=== PATIENT | male | born 1960 | race Caucasian/White ===

== ENCOUNTER → 2016-04-27 | Outpatient (CLI) | payer BC ==
--- NOTE | 2016-04-27 16:48 | CR ---
EXAMINATION: Right ankle HISTORY: Pain COMPARISON: 03/31/2016 TECHNIQUE: 3 views FINDINGS/IMPRESSION: There is stable screw and plate fixation of a distal fibular fracture. 2 screws fixate the medial malleolus. There is a stable nondisplaced posterior malleolus fracture.
== END ==
LOC: MW.CHORTHO 07:53
PROVIDERS: ATTEND Orthopaedic Surgery
DX: M25.571 Pain in right ankle and joints of right foot (principal); Z96.7 Presence of other bone and tendon implants; Z98.890 Other specified postprocedural states; Z87.81 Personal history of (healed) traumatic fracture; S82.891A Other fracture of right lower leg, initial encounter for closed fracture
CPT/HCPCS: 73610-26-RT; 73610-RT

== ENCOUNTER → 2016-06-08 | Outpatient (CLI) | payer BC ==
--- NOTE | 2016-06-08 11:49 | CR ---
EXAMINATION: Right ankle HISTORY: Hardware COMPARISON: 04/27/2016 TECHNIQUE: 3 views FINDINGS/IMPRESSION: There is stable screw and plate fixation of a distal fibular fracture with 2 sy ndesmotic screws noted. 2 screws also fixate the medial malleolus, unchanged in position and alignme nt. There is a mildly displaced posterior malleolus fracture identified.
== END ==
LOC: MW.CHORTHO 06:59
PROVIDERS: ATTEND Orthopaedic Surgery
DX: Z96.7 Presence of other bone and tendon implants (principal); Z98.890 Other specified postprocedural states; S82.851A Displaced trimalleolar fracture of right lower leg, initial encounter for closed fracture; S93.431A Sprain of tibiofibular ligament of right ankle, initial encounter; Z87.81 Personal history of (healed) traumatic fracture; S82.891A Other fracture of right lower leg, initial encounter for closed fracture
CPT/HCPCS: 73610-26-RT; 73610-RT

== ENCOUNTER 2016-07-14 08:27 | Day surgery (SDC) | payer BC ==
[~2016-07-14 08:27] MED LIST: Acetaminophen/HYDROcodone 325-10 MG Tab PO PRN; Clindamycin Phosphate in D5W 900 MG in Premix Bag 1 BAG IV SCH; Lactated Ringers 1,000 ML IV SCH; Lidocaine 2% 5 ML SDV ONE; Midazolam 1 MG/ML 2 ML SDV ONE; Ondansetron 4 MG/2 ML SDV ONE; Propofol 200 MG/20 ML SDV ONE; fentaNYL 250 MCG/5 ML SDV ONE
--- NOTE | 2016-07-14 09:05 | PCM.PREANE ---
Preanesthetic Assessment - Procedure Proposed Procedure: removal of hardware right ankle - Anesthesia/Transfusion/Family Hx Anesthesia History: Prior Anesthesia Without Reaction Family History of Anesthesia Reaction: No Transfusion History: No Prior Transfusion(s) Additional History: Prior anesthetic for ankle ORIF in 2016 without problem. - Review of Systems General: No Symptoms Pulmonary: Other (sleep apnea - uses CPAP) Cardiovascular: Other (hypertension and hypercholesterolemic; murmur since kid - no symptoms nor treatment) Gastrointestinal: No symptoms, Other (ETOH use ) Neurological: No Symptoms Other: Reports: Depression, Anxiety - Physical Assessment Height: 5 ft 10 in Weight: 300 lb 0.01 oz ASA Class: 3 Mental Status: Alert & Oriented x3 Airway Class: Mallampati = 2 (narrow view due to tonsillar tissue) Thyro-Mental Finger Breadths: 4 Mouth Opening Finger Breadths: 3 ROM/Head Extension: Full (short neck) Lungs: Clear to auscultation, Normal respiratory effort Cardiovascular: Regular Rate, Regular Rhythm, Murmurs (left sternal border) - Allergies Allergies/Adverse Reactions: Allergies Allergy/AdvReac Type Severity Reaction Status Date / Time Penicillins Allergy "turns Verified 02/18/16 16:05 purple" - Blood Blood Available: No Product(s) Available: None - Anesthesia Plan Free Text/Narrative:: present with interview and exam: General understood, prior anesthetic - same. Pre-Op Medication Ordered: None - Acknowledgements Anesthesia Type Planned: General Anesthesia (LMA vs OETT) Pt an Appropriate Candidate for the Planned Anesthesia: Yes Alternatives and Risks of Anesthesia Discussed w Pt/Guardian: Yes Pt/Guardian Understands and Agrees with Anesthesia Plan: Yes PreAnesthesia Questionnaire HEENT History: Reports: None Cardiovascular History: Reports: High Cholesterol, Hypertension Respiratory History: Reports: None, Sleep Apnea (Uses CPAP) Gastrointestinal History: Reports: None Genitourinary History: Reports: None Musculoskeletal History: Reports: Fracture, Osteoarthritis Other Musculoskeletal History: surgery for rt ankle fx (hardware to be removed ) Neurological History: Reports: None Psychiatric History: Reports: Anxiety Endocrine/Metabolic History: Reports: Diabetes, Type II, Obesity/BMI 30+ Hematologic History: Reports: None Immunologic History: Reports: None Oncologic (Cancer) History: Reports: None Dermatologic History: Reports: None - Infectious Disease History Infectious Disease History: Reports: Chicken Pox - Past Surgical History Head Surgeries/Procedures: Reports: None HEENT Surgical History: Reports: Myringotomy w Tube(s) Cardiovascular Surgical History: Reports: None Respiratory Surgical History: Reports: None GI Surgical History: Reports: None Male Surgical History: Reports: None Endocrine Surgical History: Reports: None Neurological Surgical History: Reports: None Musculoskeletal Surgical History: Reports: Knee Replacement, Shoulder Surgery, Other (See Below) Other Musculoskeletal Surgeries/Procedures:: bilateral knee replacement Oncologic Surgical History: Reports: None Dermatological Surgical History: Reports: None - SUBSTANCE USE Smoking Status *Q: Former Smoker Second Hand Smoke Exposure: No Recreational Drug Use History: No - HOME MEDS Home Medications: Home Meds Furosemide 20 mg PO BEDTIME 03/16/16 [History] LORazepam 1 mg PO BEDTIME 03/16/16 [History] Lisinopril 20 mg PO BEDTIME 03/16/16 [History] metFORMIN HCl [Metformin HCl] 1,000 mg PO BID 03/16/16 [History] - CURRENT (IN HOUSE) MEDS Current Meds: Current Medications Hydrocodone Bitart/Acetaminophen ([place] 325-10 Mg) 1 - 2 tab PO Q4H PRN PRN Reason: Pain Clindamycin Phosphate 900 mg/ (Premix) 50 mls @ 100 mls/hr IV ONCALL DAVID Lactated Ringer's (Ringers, Lactated) 1,000 mls @ 100 mls/hr IV ASDIRECTED [facility] Last Admin: 07/14/16 08:04 Dose: 100 mls/hr Discontinued Medications Fentanyl (Sublimaze) Confirm Administered Dose 250 mcg .ROUTE .STK-MED ONE Stop: 07/14/16 08:26 Lidocaine (Xylocaine-Mpf 2%) Confirm Administered Dose 5 ml .ROUTE .STK-MED ONE Stop: 07/14/16 08:26 Midazolam HCl (Versed 1 Mg/Ml) Confirm Administered Dose 2 mg .ROUTE .STK-MED ONE Stop: 07/14/16 08:26 Ondansetron HCl (Zofran) Confirm Administered Dose 4 mg .ROUTE .STK-MED ONE Stop: 07/14/16 08:26 Propofol (Diprivan 20 Ml) Confirm Administered Dose 200 mg .ROUTE .STK-MED ONE Stop: 07/14/16 08:26
[2016-07-14] MEDS ORDERED: Bupivacaine 0.5% 30 ML SDV ONE (09:23)
[2016-07-14] MEDS ORDERED: Propofol 200 MG/20 ML SDV ONE (09:45)
[2016-07-14] MEDS ORDERED: ePHEDrine 50 MG/ML SDV ONE (09:54)
[2016-07-14] MEDS ORDERED: Sodium Chloride 0.9% 20 ML ONE (09:55)
[2016-07-14] MEDS ORDERED: Acetaminophen/HYDROcodone 325-5 MG Tab PO PRN (10:36)
--- NOTE | 2016-07-14 10:42 | PCM.OPNOTE ---
- General Post-Op/Procedure Note Date of Surgery/Procedure: 07/14/16 Operative Procedure(s): 1. HWR R ankle, deep implant. 2. Manipulation of ankle under general anesthesia Post-Op Diagnosis: retained HW R ankle, syndesmotic injury R ankle Anesthesia Technique: General LMA Primary Surgeon: Elsi Beth Fixed Route Operator: Vinay Greco in mLs: 10 Condition: Good Free Text/Narrative:: tt=0 min #[id number]
[2016-07-14] MEDS: fentaNYL 100 MCG/2 ML SDV IVPUSH PRN ×2 (10:56→11:03)
--- NOTE | 2016-07-14 11:21 | PCM.POSTAN ---
POST ANESTHESIA ASSESSMENT - MENTAL STATUS Mental Status: alert, oriented - RESPIRATORY Respiratory Status: respiratory rate WNL, airway patent, O2 saturation stable - CARDIOVASCULAR CV Status: pulse rate WNL, blood pressure stable - GASTROINTESTINAL GI Status: no symptoms - POST OP HYDRATION Hydration Status: adequate & stable - OBSERVATIONS Free Text/Narrative:: to Phase II
--- NOTE | 2016-07-14 13:04 | PCM48HPAN ---
Post Anesthesia Note - EVALUATION WITHIN 48HRS OF ANESTHETIC Vital Signs in Normal Range: Yes Patient Participated in Evaluation: Yes Respiratory Function Stable: Yes Airway Patent: Yes Cardiovascular Function Stable: Yes Hydration Status Stable: Yes Pain Control Satisfactory: Yes Nausea and Vomiting Control Satisfactory: Yes Mental Status Recovered: Yes - COMMENTS/OBSERVATIONS Free Text/Narrative:: Patient seen earlier before leaving facility. Note now done.
[2016-07-14 13:14] VITALS: BP 101/64
--- NOTE | 2016-07-14 14:23 | OR ---
SURGEON: Elsi Beth MD DATE OF PROCEDURE: 07/14/2016 PREOPERATIVE DIAGNOSES: Retained hardware, right ankle, status post open reduction and internal fixation of syndesmotic injury. POSTOPERATIVE DIAGNOSES: Retained hardware, right ankle, status post open reduction and internal fixation of syndesmotic injury. PROCEDURE: Hardware removal, right ankle, deep implant x2. FIELD SALES REPRESENTATIVE: Vinay Greco PA-C. ANESTHESIA: General. ESTIMATED BLOOD LOSS: 10 mL. TOURNIQUET TIME: 0 minutes. COMPLICATIONS: None. DVT PROPHYLAXIS: Not indicated. IMPLANTS USED: None. BRIEF HISTORY: Frankie is a 55-year-old male, who sustained a right bimalleolar ankle fracture with syndesmotic injury requiring surgical treatment. He has done well following this. I did recommend removal of the screws to prevent inadvertent breakage. The risks and goals of procedure were discussed with the patient and were documented preoperatively. He agreed to proceed. DESCRIPTION OF PROCEDURE: The patient was properly identified and brought to the operating room. He was transferred from the OR cart and placed on the operating table in supine position. General anesthesia was administered. After adequate anesthesia was obtained, the right lower extremity was prepped in standard fashion using ChloraPrep solution. It was then sterilely draped. A time-out was performed to ensure correct site and procedure. Preoperative antibiotics were given. The surgical site had been marked preoperatively. C-arm image intensifier was used to confirm position of the screws. A small incision was made over the site of the previous incision where the hardware was noted. Subcutaneous tissues were dissected down to the level of the screws. The screws were removed without difficulty. They were completely intact. At the completion of the procedure, C-arm imaging was used, which confirmed good reduction of the ankle syndesmosis. This was stressed with an external rotation stress view. No widening was noted at the syndesmosis. The wound was then copiously irrigated with saline solution. The deep tissues were closed with 3-0 Vicryl. The skin was closed with irene. Marcaine 0.5% was injected along the incision site. Xeroform gauze was placed over the wound and a bulky dressing was applied. He was awakened from his anesthetic and transferred back to the operating room cart. He was brought to recovery room in stable condition. All needle and sponge counts were correct. LORY / MODL /[id number]
--- NOTE | 2016-07-14 15:10 | CR ---
EXAMINATION: Right ankle HISTORY: Hardware removal COMPARISON: 06/08/2016 TECHNIQUE: 4 views FINDINGS/IMPRESSION: There has been interval removal of 2 syndesmotic anchor screws. Persistent scre w and plate hardware is noted within the distal fibula and 2 screws are noted fixating the medial ma lleolus.
== END 2016-07-14 12:40 | disposition home or self-care (01) ==
LOC: MW.SDS 08:27
PROVIDERS: ATTEND Orthopaedic Surgery
PROC: 0SPF04Z Removal of Internal Fixation Device from Right Ankle Joint, Open Approach (ICD-10-PCS; principal; 2016-07-14)
DX: S82.841D Displaced bimalleolar fracture of right lower leg, subsequent encounter for closed fracture with routine healing (principal); F41.9 Anxiety disorder, unspecified; M19.90 Unspecified osteoarthritis, unspecified site; I10 Essential (primary) hypertension; E78.2 Mixed hyperlipidemia; G47.33 Obstructive sleep apnea (adult) (pediatric); E11.9 Type 2 diabetes mellitus without complications; E66.9 Obesity, unspecified; Z79.84 Long term (current) use of oral hypoglycemic drugs; Z79.899 Other long term (current) drug therapy; Z88.0 Allergy status to penicillin; Z88.8 Allergy status to other drugs, medicaments and biological substances; Z68.41 Body mass index [BMI] 40.0-44.9, adult; Z87.891 Personal history of nicotine dependence; Z98.890 Other specified postprocedural states; Z99.89 Dependence on other enabling machines and devices; Z96.653 Presence of artificial knee joint, bilateral
CPT/HCPCS: 20680; 36415; 76000; 82962; 84132; 93005; A9270; J2250; J2405; J3010; J7120; 01480; 88300; J2704

== ENCOUNTER 2019-01-08 23:05 | Emergency (ER) | payer BC ==
[2019-01-08] MEDS ORDERED: Sodium Chloride 0.9% 10 ML Syringe FLUSH PRN (23:14)
[2019-01-08] MEDS ORDERED: Sodium Chloride 0.9% 2.5 ML Syringe FLUSH PRN (23:14)
--- NOTE | 2019-01-08 23:22 | EDM.PDOC ---
ED HPI GENERAL MEDICAL PROBLEM - General Chief Complaint: Abdominal Pain Stated Complaint: UPPER ABD PAIN Time Seen by Provider: 01/09/19 01:51 - History of Present Illness INITIAL COMMENTS - FREE TEXT/NARRATIVE: HISTORY AND PHYSICAL: History of present illness: Patient is 58-year-old white male history of diabetes who presents with a concern of substernal discomfort with radiation to his back he states he's had some body aches started this morning thought he might have the flu he denies shortness of breath palpitations or other concern he denies trauma denies diarrhea denies nausea or vomiting Review of systems: As per history of present illness and below otherwise all systems reviewed and negative. Past medical history: As per history of present illness and as reviewed below otherwise noncontributory. Surgical history: As per history of present illness and as reviewed below otherwise noncontributory. Social history: No reported history of drug or alcohol abuse. Family history: As per history of present illness and as reviewed below otherwise noncontributory. Physical exam: HEENT: Atraumatic, normocephalic, pupils reactive, negative for conjunctival pallor or scleral icterus, mucous membranes moist, throat clear, neck supple, nontender, trachea midline. Lungs: Clear to auscultation, breath sounds equal bilaterally, chest nontender. Heart: S1S2, regular, negative for clicks, rubs, or JVD. Abdomen: Soft, protuberant, nontender. Negative for masses or hepatosplenomegaly. Negative for costovertebral tenderness. Pelvis: Stable nontender. Genitourinary: Deferred. Rectal: Deferred. Extremities: Atraumatic, negative for cords or calf pain. Neurovascular unremarkable. Neuro: Awake, alert, oriented. Cranial nerves II through XII unremarkable. Cerebellum unremarkable. Motor and sensory unremarkable throughout. Exam nonfocal. Diagnostics: CBC CMP troponin PT/INR influenza screen CT chest abdomen pelvis with IV contrast Therapeutics: Saline 1 L bolus Impression: #1 substernal/epigastric chest pain Definitive disposition and diagnosis as appropriate pending reevaluation and review of above. - Related Data Allergies Allergy/AdvReac Type Severity Reaction Status Date / Time Penicillins Allergy "turns Verified 01/08/19 23:18 purple" cholesterol medication Allergy Other Uncoded 01/08/19 23:18 Home Meds: Home Meds Furosemide 20 mg PO BEDTIME 03/16/16 [History] LORazepam 1 mg PO BEDTIME 03/16/16 [History] Lisinopril 20 mg PO BEDTIME 03/16/16 [History] metFORMIN HCl [Metformin HCl] 1,000 mg PO BID 03/16/16 [History] Acetaminophen/HYDROcodone [[place] 325-5 MG] 1 - 2 tab PO Q4H PRN #80 tablet 07/14 [Rx] Past Medical History HEENT History: Reports: None Cardiovascular History: Reports: High Cholesterol, Hypertension Respiratory History: Reports: None, Sleep Apnea (Uses CPAP) Gastrointestinal History: Reports: None Genitourinary History: Reports: None Musculoskeletal History: Reports: Fracture, Osteoarthritis Other Musculoskeletal History: surgery for rt ankle fx (hardware to be removed ) Neurological History: Reports: None Psychiatric History: Reports: Anxiety Endocrine/Metabolic History: Reports: Diabetes, Type II, Obesity/BMI 30+ Hematologic History: Reports: None Immunologic History: Reports: None Oncologic (Cancer) History: Reports: None Dermatologic History: Reports: None - Infectious Disease History Infectious Disease History: Reports: Chicken Pox - Past Surgical History Head Surgeries/Procedures: Reports: None HEENT Surgical History: Reports: Myringotomy w Tube(s) Cardiovascular Surgical History: Reports: None Respiratory Surgical History: Reports: None GI Surgical History: Reports: None Male Surgical History: Reports: None Endocrine Surgical History: Reports: None Neurological Surgical History: Reports: None Musculoskeletal Surgical History: Reports: Knee Replacement, Shoulder Surgery, Other (See Below) Other Musculoskeletal Surgeries/Procedures:: bilateral knee replacement Oncologic Surgical History: Reports: None Dermatological Surgical History: Reports: None Social & Family History - Family History Family Medical History: Noncontributory - Caffeine Use Caffeine Use: Reports: Soda Caffeine Use Comment: 3 44oz drinks/day ED ROS GENERAL - Review of Systems Review Of Systems: Comprehensive ROS is negative, except as noted in HPI. ED EXAM, GENERAL - Physical Exam Exam: See Below (dictation) Course - Vital Signs Text/Narrative:: Patient's emergency department course and workup has been unremarkable I discussed with patient admission for observation in light of the location and unclear etiology declines will follow up with his private medical doctor he agrees to return as needed as discussed Last Recorded V/S: Last Vital Signs Temp 36.9 C 01/08/19 23:21 Pulse 92 01/08/19 23:21 Resp 18 01/08/19 23:21 BP 179/92 H 01/08/19 23:21 Pulse Ox 94 L 01/08/19 23:21 - Orders/Labs/Meds Orders: Active Orders 24 hr Category Date Time Status Cardiac Monitoring [RC] . DIRECTED Care 01/08/19 23:14 Active EKG Documentation Completion [RC] STAT Care 01/08/19 23:14 Active Oxygen Therapy [RC] ASDIRECTED Care 01/08/19 23:14 Active Pulse Oximetry [RC] ASDIRECTED Care 01/08/19 23:14 Active CULTURE BLOOD [BC] Stat Lab 01/08/19 23:31 Received CULTURE BLOOD [BC] Stat Lab 01/08/19 23:46 Received Sodium Chloride 0.9% [Saline Flush] Med 01/08/19 23:14 Active 10 ml FLUSH ASDIRECTED PRN Sodium Chloride 0.9% [Saline Flush] Med 01/08/19 23:14 Active 2.5 ml FLUSH ASDIRECTED PRN Blood Culture x2 Reflex Set [OM.PC] Stat Oth 01/08/19 23:17 Ordered Saline Lock Insert [OM.PC] Stat Oth 01/08/19 23:14 Ordered Medication Orders Sodium Chloride (Saline Flush) 10 ml FLUSH ASDIRECTED PRN PRN Reason: Keep Vein Open Sodium Chloride (Saline Flush) 2.5 ml FLUSH ASDIRECTED PRN PRN Reason: Keep Vein Open Labs: Laboratory Tests 01/08/19 01/08/19 01/08/19 Range/Units 23:31 23:31 23:31 WBC 9.92 (4.0-11.0) K/uL RBC 5.37 (4.50-5.90) M/uL Hgb 14.9 (13.0-17.0) g/dL Hct 43.2 (38.0-50.0) % MCV 80.4 (80.0-98.0) fL MCH 27.7 (27.0-32.0) pg MCHC 34.5 (31.0-37.0) g/dL RDW Std Deviation 45.8 (28.0-62.0) fl RDW Coeff of Rony 16 H (11.0-15.0) % Plt Count 221 (150-400) K/uL MPV 10.90 (7.40-12.00) fL Neut % (Auto) 73.9 (48.0-80.0) % Lymph % (Auto) 15.1 L (16.0-40.0) % Burnett % (Auto) 10.0 (0.0-15.0) % Eos % (Auto) 0.7 (0.0-7.0) % Baso % (Auto) 0.3 (0.0-1.5) % Neut # (Auto) 7.3 H (1.4-5.7) K/uL Lymph # (Auto) 1.5 (0.6-2.4) K/uL Burnett # (Auto) 1.0 H (0.0-0.8) K/uL Eos # (Auto) 0.1 (0.0-0.7) K/uL Baso # (Auto) 0.0 (0.0-0.1) K/uL INR 0.96 Lactate (0.20-2.00) mmol/L Sodium 140 (136-148) mmol/L Potassium 4.1 (3.5-5.1) mmol/L Chloride 104 (98-107) mmol/L Carbon Dioxide 24.2 (21.0-32.0) mmol/L BUN 15 (7.0-18.0) mg/dL Creatinine 1.1 (0.8-1.3) mg/dL Est Cr Clr Drug Dosing 75.58 mL/min Estimated GFR (MDRD) > 60.0 ml/min Glucose 131 H (74-106) mg/dL Calcium 9.2 (8.5-10.1) mg/dL Total Bilirubin 0.7 (0.2-1.0) mg/dL AST 10 L (15-37) IU/L ALT 22 (14-63) IU/L Alkaline Phosphatase 127 H (46-116) U/L Troponin I < 0.050 (0.000-0.056) ng/mL Total Protein 7.9 (6.4-8.2) g/dL Albumin 4.1 (3.4-5.0) g/dL Globulin 3.8 (2.6-4.0) g/dL Albumin/Globulin Ratio 1.1 (0.9-1.6) Lipase 60 L (73-393) U/L 01/08/19 Range/Units 23:31 WBC (4.0-11.0) K/uL RBC (4.50-5.90) M/uL Hgb (13.0-17.0) g/dL Hct (38.0-50.0) % MCV (80.0-98.0) fL MCH (27.0-32.0) pg MCHC (31.0-37.0) g/dL RDW Std Deviation (28.0-62.0) fl RDW Coeff of Rony (11.0-15.0) % Plt Count (150-400) K/uL MPV (7.40-12.00) fL Neut % (Auto) (48.0-80.0) % Lymph % (Auto) (16.0-40.0) % Burnett % (Auto) (0.0-15.0) % Eos % (Auto) (0.0-7.0) % Baso % (Auto) (0.0-1.5) % Neut # (Auto) (1.4-5.7) K/uL Lymph # (Auto) (0.6-2.4) K/uL Burnett # (Auto) (0.0-0.8) K/uL Eos # (Auto) (0.0-0.7) K/uL Baso # (Auto) (0.0-0.1) K/uL INR Lactate 1.4 (0.20-2.00) mmol/L Sodium (136-148) mmol/L Potassium (3.5-5.1) mmol/L Chloride (98-107) mmol/L Carbon Dioxide (21.0-32.0) mmol/L BUN (7.0-18.0) mg/dL Creatinine (0.8-1.3) mg/dL Est Cr Clr Drug Dosing mL/min Estimated GFR (MDRD) ml/min Glucose (74-106) mg/dL Calcium (8.5-10.1) mg/dL Total Bilirubin (0.2-1.0) mg/dL AST (15-37) IU/L ALT (14-63) IU/L Alkaline Phosphatase (46-116) U/L Troponin I (0.000-0.056) ng/mL Total Protein (6.4-8.2) g/dL Albumin (3.4-5.0) g/dL Globulin (2.6-4.0) g/dL Albumin/Globulin Ratio (0.9-1.6) Lipase (73-393) U/L Meds: Medications Generic Name Dose Route Start Last Admin Trade Name Freq PRN Reason Stop Dose Admin Sodium Chloride 10 ml 01/08/19 23:14 Saline Flush FLUSH ASDIRECTED PRN Keep Vein Open Sodium Chloride 2.5 ml 01/08/19 23:14 Saline Flush FLUSH ASDIRECTED PRN Keep Vein Open Discontinued Medications Generic Name Dose Route Start Last Admin Trade Name Freq PRN Reason Stop Dose Admin Iopamidol 100 ml 01/09/19 00:51 01/09/19 00:52 Isovue Multipack-370 (76%) IVPUSH 01/09/19 00:52 100 ml ONETIME STA Administration Departure - Departure Time of Disposition: 01:51 Disposition: Home, Self-Care 01 Condition: Good Clinical Impression: Epigastric pain - Discharge Information Forms: ED Department Discharge Additional Instructions: The following information is given to patients seen in the emergency department who are being discharged to home. This information is to outline your options for follow-up care. We provide all patients seen in our emergency department with a follow-up referral. The need for follow-up, as well as the timing and circumstances, are variable depending upon the specifics of your emergency department visit. If you don't have a primary care physician on staff, we will provide you with a referral. We always advise you to contact your personal physician following an emergency department visit to inform them of the circumstance of the visit and for follow-up with them and/or the need for any referrals to a consulting specialist. The emergency department will also refer you to a specialist when appropriate. This referral assures that you have the opportunity for followup care with a specialist. All of these measure are taken in an effort to provide you with optimal care, which includes your followup. Under all circumstances we always encourage you to contact your private physician who remains a resource for coordinating your care. When calling for followup care, please make the office aware that this follow-up is from your recent emergency room visit. If for any reason you are refused follow-up, please contact the [facility] emergency department at and asked to speak to the emergency department charge nurse. Continue current medications follow-up with private medical doctor as discussed and return as needed as discussed[] - My Orders Last 24 Hours: My Active Orders 01/08/19 23:14 Cardiac Monitoring [RC] . DIRECTED EKG Documentation Completion [RC] STAT Oxygen Therapy [RC] ASDIRECTED Pulse Oximetry [RC] ASDIRECTED Sodium Chloride 0.9% [Saline Flush] 10 ml FLUSH ASDIRECTED PRN Sodium Chloride 0.9% [Saline Flush] 2.5 ml FLUSH ASDIRECTED PRN Saline Lock Insert [OM.PC] Stat 01/08/19 23:17 Blood Culture x2 Reflex Set [OM.PC] Stat 01/08/19 23:31 CULTURE BLOOD [BC] Stat 01/08/19 23:46 CULTURE BLOOD [BC] Stat - Assessment/Plan Last 24 Hours: My Active Orders 01/08/19 23:14 Cardiac Monitoring [RC] . DIRECTED EKG Documentation Completion [RC] STAT Oxygen Therapy [RC] ASDIRECTED Pulse Oximetry [RC] ASDIRECTED Sodium Chloride 0.9% [Saline Flush] 10 ml FLUSH ASDIRECTED PRN Sodium Chloride 0.9% [Saline Flush] 2.5 ml FLUSH ASDIRECTED PRN Saline Lock Insert [OM.PC] Stat 01/08/19 23:17 Blood Culture x2 Reflex Set [OM.PC] Stat 01/08/19 23:31 CULTURE BLOOD [BC] Stat 01/08/19 23:46 CULTURE BLOOD [BC] Stat
[2019-01-09 00:12] LABS: BLOOD UREA NITROGEN,BUN 15 mg/dL (7.0-18.0); CARBON DIOXIDE,CO2 24.2 mmol/L (21.0-32.0); CHLORIDE,CL 104 mmol/L (98-107); GLUCOSE RANDOM 131 mg/dL (74-106); LIPASE 60 U/L (73-393); POTASSIUM,K 4.1 mmol/L (3.5-5.1); SODIUM,NA 140 mmol/L (136-148)
[2019-01-09] MEDS ORDERED: Iopamidol 755 MG/ML 500 ML Multipack Bottle IVPUSH STA (00:51)
--- NOTE | 2019-01-09 01:30 | CT ---
INDICATION: Upper abdominal and flank pain TECHNIQUE: CT abdomen and pelvis acquired with 100 cc Isovue 370 IV contrast. COMPARISON: February 18, 2016 FINDINGS: Lower chest: Unremarkable. Liver: Unremarkable. Spleen: Unremarkable. Pancreas: Unremarkable. Gallbladder and bile ducts: Unremarkable. Adrenal glands: Unremarkable. Kidneys: Unremarkable. GI tract: Unremarkable. Appendix is normal. Vascular structures: Unremarkable. Lymph nodes: Unremarkable. Miscellaneous: Small fat containing right inguinal hernia. Small fat containing umbilical hernia. No free air or significant free fluid. Pelvic Organs: Unremarkable. Bones: Status post right hip arthroplasty. Severe degenerative changes in the left hip joint. Grade 1 anterolisthesis of L5 on S1 secondary to bilateral L5 pars defects. IMPRESSION: No acute intra-abdominal process identified. Severe degenerative changes in the left hip joint. Status post right hip arthroplasty. Please note that all CT scans at this facility use dose modulation, iterative reconstruction, and/or weight-based dosing when appropriate to reduce radiation dose to as low as reasonably achievable. Dictated by Elmira Scherer MD @ Jan 09 2019 1:24AM Signed by Dr. Elmira Scherer @ Jan 09 2019 1:29AM
--- NOTE | 2019-01-09 01:43 | CT ---
INDICATION: Upper abdominal pain TECHNIQUE: CT chest was acquired with 100 cc Isovue 370 IV contrast. COMPARISON: CT abdomen pelvis February 17, 2019. FINDINGS: Cardiovascular structures: Heart size is normal. Thoracic aorta and main pulmonary artery are normal in caliber. Mediastinum and nickolas: No mass or adenopathy. Lungs: Clear. Pleura and pericardium: No effusions. Chest wall and axilla: No mass or adenopathy. Upper abdomen: Unremarkable. Bones: Moderate degenerative changes in both shoulder joints. Lucent lesions in T4 and T6 vertebrae likely represent hemangiomas. The T6 lesion is unchanged compared to a prior CT from February 18, 2016. The T4 lesion was not included on this study. IMPRESSION: No acute intrathoracic abnormality. Please note that all CT scans at this facility use dose modulation, iterative reconstruction, and/or weight-based dosing when appropriate to reduce radiation dose to as low as reasonably achievable. Dictated by Elmira Scherer MD @ Jan 09 2019 1:41AM Signed by Dr. Elmira Scherer @ Jan 09 2019 1:41AM
[2019-01-09 01:51] VITALS: BP 179/88; PULSE 76
== END 2019-01-09 02:05 | disposition home or self-care (01) ==
LOC: MW.ED 23:05
DX: R10.13 Epigastric pain (principal); R07.2 Precordial pain; I10 Essential (primary) hypertension; E11.9 Type 2 diabetes mellitus without complications; F41.9 Anxiety disorder, unspecified; M19.90 Unspecified osteoarthritis, unspecified site; E66.9 Obesity, unspecified; Z68.41 Body mass index [BMI] 40.0-44.9, adult; Z88.0 Allergy status to penicillin; Z88.8 Allergy status to other drugs, medicaments and biological substances; Z79.84 Long term (current) use of oral hypoglycemic drugs
CPT/HCPCS: 36415; 71260; 74177; 80053; 83605; 83690; 84484; 85025; 85610; 87040; 87804; 93005; 99284; Q9967

== ENCOUNTER 2019-01-09 07:49 | Emergency (ER) | payer BC ==
--- NOTE | 2019-01-09 08:02 | EDM.PDOC ---
ED HPI GENERAL MEDICAL PROBLEM - General Chief Complaint: Genitourinary Problem Stated Complaint: KIDNEY STONES Time Seen by Provider: 01/09/19 07:53 - History of Present Illness INITIAL COMMENTS - FREE TEXT/NARRATIVE: HISTORY AND PHYSICAL: History of present illness: The patient is a 58-year-old male with a history of diabetes hypertension hyperlipidemia and obesity who was seen here in our emergency department approximately 8 hours ago for substernal chest pain back pain and had a full evaluation including labs CAT scan of the chest abdomen and pelvis and no acute abnormalities were identified to indicate what was causing his discomfort. 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 The patient was discharged home at about 2 this morning and represented here this morning about Hal a half hours later complaining of trouble with urination. On his prior visit he did not produce a urine sample did not have the urge to do so. He tells me that he went home and drank some fluids and went to sleep for about 4 hours and then woke up because he felt the urge to urinate. When he went to the bathroom he could not initiate a stream and that seemed to worsen and he feels like there is urine in his bladder and he cannot get it out. He's never had trouble initiating a stream and has no prostate issues that he is aware of. He has no flank pain currently and has had no hematuria. He says that he believes that his prostate was examined about 10 years ago but no recent exams and he has never had any problems with urination. He complains of lower abdominal pain more in the suprapubic area. He has had no Fevers or other symptoms since his discharge from the ED 6 hours ago Review of systems: As per history of present illness and below otherwise all systems reviewed and negative. Past medical history: As per history of present illness and as reviewed below otherwise noncontributory. Surgical history: As per history of present illness and as reviewed below otherwise noncontributory. Social history: No reported history of drug or alcohol abuse. Family history: As per history of present illness and as reviewed below otherwise noncontributory. Physical exam: General: Well-developed well-nourished overweight man who is nontoxic and vital signs were noted by me. HEENT: Atraumatic, normocephalic, negative for conjunctival pallor or scleral icterus, mucous membranes moist, throat clear, neck supple, nontender, trachea midline. Lungs: Clear to auscultation, breath sounds equal bilaterally, chest nontender. Heart: S1S2, regular, negative for clicks, rubs, or JVD. Abdomen: Soft, nondistended, there is some diffuse mild to moderate tenderness in the suprapubic area that does not localize right or left and no upper abdominal tenderness, bowel sounds are hypoactive, Negative for masses or hepatosplenomegaly. Negative for costovertebral tenderness. Pelvis: Stable nontender. Genitourinary: Deferred. Rectal: Deferred. Extremities: Atraumatic, negative for cords or calf pain. Neurovascular unremarkable. Neuro: Awake, alert, oriented. Cranial nerves II through XII unremarkable. Cerebellum unremarkable. Motor and sensory unremarkable throughout. Exam nonfocal. Diagnostics: UA with reflex, measurement of a spontaneous void is visual and bladder scan Therapeutics: Howard catheter placement with leg bag Patient was unable to free void any urine and a bladder scan was performed which showed over a liter of fluid. A Howard catheter will be placed Howard output was 1900+cc of urine. Patient feels significantly improved and will be sent home with a leg bag Impression: Acute urinary retention Definitive disposition and diagnosis as appropriate pending reevaluation and review of above. right abdomen, groin, testicles, penis, Pain Score (Numeric/FACES): 6 - Related Data Allergies Allergy/AdvReac Type Severity Reaction Status Date / Time Penicillins Allergy "turns Verified 01/09/19 07:55 purple" cholesterol medication Allergy Other Uncoded 01/09/19 07:55 Home Meds: Home Meds LORazepam 1 mg PO BEDTIME 03/16/16 [History] Lisinopril 20 mg PO BEDTIME 03/16/16 [History] metFORMIN HCl [Metformin HCl] 1,000 mg PO BID 03/16/16 [History] Past Medical History HEENT History: Reports: None Cardiovascular History: Reports: High Cholesterol, Hypertension Respiratory History: Reports: None, Sleep Apnea (Uses CPAP) Gastrointestinal History: Reports: None Genitourinary History: Reports: None Musculoskeletal History: Reports: Fracture, Osteoarthritis Other Musculoskeletal History: surgery for rt ankle fx (hardware to be removed ) Neurological History: Reports: None Psychiatric History: Reports: Anxiety Endocrine/Metabolic History: Reports: Diabetes, Type II, Obesity/BMI 30+ Hematologic History: Reports: None Immunologic History: Reports: None Oncologic (Cancer) History: Reports: None Dermatologic History: Reports: None - Infectious Disease History Infectious Disease History: Reports: Chicken Pox - Past Surgical History Head Surgeries/Procedures: Reports: None HEENT Surgical History: Reports: Myringotomy w Tube(s) Cardiovascular Surgical History: Reports: None Respiratory Surgical History: Reports: None GI Surgical History: Reports: None Male Surgical History: Reports: None Endocrine Surgical History: Reports: None Neurological Surgical History: Reports: None Musculoskeletal Surgical History: Reports: Knee Replacement, Shoulder Surgery, Other (See Below) Other Musculoskeletal Surgeries/Procedures:: bilateral knee replacement Oncologic Surgical History: Reports: None Dermatological Surgical History: Reports: None Social & Family History - Family History Family Medical History: Noncontributory - Caffeine Use Caffeine Use: Reports: Soda Caffeine Use Comment: 3 44oz drinks/day ED ROS GENERAL - Review of Systems Review Of Systems: Comprehensive ROS is negative, except as noted in HPI. ED EXAM, GENERAL - Physical Exam Exam: See Below (See dictation) Course - Vital Signs Last Recorded V/S: Last Vital Signs Temp 36.2 C 01/09/19 07:52 Pulse 87 01/09/19 07:52 Resp 20 01/09/19 07:52 BP 153/82 H 01/09/19 07:52 Pulse Ox 96 01/09/19 07:52 - Orders/Labs/Meds Orders: Active Orders 24 hr Category Date Time Status Bladder Scan [RC] ASDIRECTED Care 01/09/19 07:58 Active Insert Howard Catheter [Insert Urinary Catheter] [OM.PC] Care 01/09/19 08:15 Ordered Q24H Urinary Catheter Assessment [RC] ASDIRECTED Care 01/09/19 08:15 Active Labs: Laboratory Tests 01/09/19 Range/Units 08:20 Urine Color YELLOW Urine Appearance CLEAR Urine pH 6.5 (5.0-8.0) Ur Specific Echo <= 1.005 (1.001-1.035) Urine Protein NEGATIVE (NEGATIVE) mg/dL Urine Glucose (UA) NEGATIVE (NEGATIVE) mg/dL Urine Ketones NEGATIVE (NEGATIVE) mg/dL Urine Occult Blood NEGATIVE (NEGATIVE) Urine Nitrite NEGATIVE (NEGATIVE) Urine Bilirubin NEGATIVE (NEGATIVE) Urine Urobilinogen 0.2 (<2.0) EU/dL Ur Leukocyte Esterase NEGATIVE (NEGATIVE) Departure - Departure Time of Disposition: 09:11 Disposition: Home, Self-Care 01 Condition: Good Clinical Impression: Acute urinary retention - Discharge Information Forms: ED Department Discharge Additional Instructions: The following information is given to patients seen in the emergency department who are being discharged to home. This information is to outline your options for follow-up care. We provide all patients seen in our emergency department with a follow-up referral. The need for follow-up, as well as the timing and circumstances, are variable depending upon the specifics of your emergency department visit. If you don't have a primary care physician on staff, we will provide you with a referral. We always advise you to contact your personal physician following an emergency department visit to inform them of the circumstance of the visit and for follow-up with them and/or the need for any referrals to a consulting specialist. The emergency department will also refer you to a specialist when appropriate. This referral assures that you have the opportunity for followup care with a specialist. All of these measure are taken in an effort to provide you with optimal care, which includes your followup. Under all circumstances we always encourage you to contact your private physician who remains a resource for coordinating your care. When calling for followup care, please make the office aware that this follow-up is from your recent emergency room visit. If for any reason you are refused follow-up, please contact the [facility] emergency department at and ask to speak to the emergency department charge nurse. [facility] [address] [place] [id number] Drain your leg bag as shown to you by ER nursing. The catheter needs to stay in place for a minimum of 2 days and you need to be followed up with our urologist Dr. Serna for further care and evaluation of this problem. Return to ER as needed and as we discussed. - My Orders Last 24 Hours: My Active Orders 01/09/19 07:58 Bladder Scan [RC] ASDIRECTED 01/09/19 08:15 Insert Howard Catheter [Insert Urinary Catheter] [OM.PC] Q24H Urinary Catheter Assessment [RC] ASDIRECTED - Assessment/Plan Last 24 Hours: My Active Orders 01/09/19 07:58 Bladder Scan [RC] ASDIRECTED 01/09/19 08:15 Insert Howard Catheter [Insert Urinary Catheter] [OM.PC] Q24H Urinary Catheter Assessment [RC] ASDIRECTED
[2019-01-09 10:14] VITALS: BP 153/87; PULSE 78
== END 2019-01-09 09:50 | disposition home or self-care (01) ==
LOC: MW.ED 07:49
DX: R33.9 Retention of urine, unspecified (principal); I10 Essential (primary) hypertension; E11.9 Type 2 diabetes mellitus without complications; M19.90 Unspecified osteoarthritis, unspecified site; F41.9 Anxiety disorder, unspecified; E66.9 Obesity, unspecified; Z68.41 Body mass index [BMI] 40.0-44.9, adult; Z88.0 Allergy status to penicillin; Z88.8 Allergy status to other drugs, medicaments and biological substances; Z79.84 Long term (current) use of oral hypoglycemic drugs
CPT/HCPCS: 51702; 51798; 81003; 99284; 99284-25

== ENCOUNTER 2019-01-10 01:33 | Emergency (ER) | payer BC ==
--- NOTE | 2019-01-10 01:48 | EDM.PDOC ---
ED HPI GENERAL MEDICAL PROBLEM - General Chief Complaint: Lower Extremity Injury/Pain Stated Complaint: BLADDER ISSUES Time Seen by Provider: 01/10/19 01:45 - History of Present Illness INITIAL COMMENTS - FREE TEXT/NARRATIVE: HISTORY AND PHYSICAL: History of present illness: Patient 58-year-old male history of type 2 diabetes who was seen twice prior in the emergency department for 2 separate events he had extensive workup and was discharged on his second visit with urinary retention and had a Howard catheter placed with a leg bag he returns now with discomfort and tingling of his inferior extremities bilateral knees have this in the past related to his diabetes. He is anxious related to the increased symptomatology in the living alone aspect awaiting his 's arrival. Review of systems: As per history of present illness and below otherwise all systems reviewed and negative. Past medical history: As per history of present illness and as reviewed below otherwise noncontributory. Surgical history: As per history of present illness and as reviewed below otherwise noncontributory. Social history: No reported history of drug or alcohol abuse. Family history: As per history of present illness and as reviewed below otherwise noncontributory. Physical exam: HEENT: Atraumatic, normocephalic, pupils reactive, negative for conjunctival pallor or scleral icterus, mucous membranes moist, throat clear, neck supple, nontender, trachea midline. Lungs: Clear to auscultation, breath sounds equal bilaterally, chest nontender. Heart: S1S2, regular, negative for clicks, rubs, or JVD. Abdomen: Soft, nondistended, nontender. Negative for masses or hepatosplenomegaly. Negative for costovertebral tenderness. Pelvis: Stable nontender. Genitourinary: Deferred. Rectal: Deferred. Extremities: Atraumatic, negative for cords or calf pain. Neurovascular unremarkable. Neuro: Awake, alert, oriented. Cranial nerves II through XII unremarkable. Cerebellum unremarkable. Motor and sensory unremarkable throughout. Exam nonfocal. Diagnostics: CBC CMP Therapeutics: None Impression: #1 diabetic neuropathy #2 history of urinary retention Definitive disposition and diagnosis as appropriate pending reevaluation and review of above. bilateral lower legs Pain Score (Numeric/FACES): 5 - Related Data Allergies Allergy/AdvReac Type Severity Reaction Status Date / Time Penicillins Allergy "turns Verified 01/10/19 01:40 purple" cholesterol medication Allergy Other Uncoded 01/10/19 01:40 Home Meds: Home Meds LORazepam 1 mg PO BEDTIME 03/16/16 [History] Lisinopril 20 mg PO BEDTIME 03/16/16 [History] metFORMIN HCl [Metformin HCl] 1,000 mg PO BID 03/16/16 [History] DULoxetine [Cymbalta] 30 mg PO DAILY 01/10/19 [History] atorvaSTATin Calcium [Atorvastatin Calcium] 1 tab PO DAILY 01/10/19 [History] Past Medical History HEENT History: Reports: None Cardiovascular History: Reports: High Cholesterol, Hypertension Respiratory History: Reports: None, Sleep Apnea (Uses CPAP) Gastrointestinal History: Reports: None Genitourinary History: Reports: None Musculoskeletal History: Reports: Fracture, Osteoarthritis Other Musculoskeletal History: surgery for rt ankle fx (hardware to be removed ) Neurological History: Reports: None Psychiatric History: Reports: Anxiety Endocrine/Metabolic History: Reports: Diabetes, Type II, Obesity/BMI 30+ Hematologic History: Reports: None Immunologic History: Reports: None Oncologic (Cancer) History: Reports: None Dermatologic History: Reports: None - Infectious Disease History Infectious Disease History: Reports: Chicken Pox - Past Surgical History Head Surgeries/Procedures: Reports: None HEENT Surgical History: Reports: Myringotomy w Tube(s) Cardiovascular Surgical History: Reports: None Respiratory Surgical History: Reports: None GI Surgical History: Reports: None Male Surgical History: Reports: None Endocrine Surgical History: Reports: None Neurological Surgical History: Reports: None Musculoskeletal Surgical History: Reports: Knee Replacement, Shoulder Surgery, Other (See Below) Other Musculoskeletal Surgeries/Procedures:: bilateral knee replacement Oncologic Surgical History: Reports: None Dermatological Surgical History: Reports: None Social & Family History - Family History Family Medical History: Noncontributory - Caffeine Use Caffeine Use: Reports: Soda Caffeine Use Comment: 3 44oz drinks/day Review of Systems - Review of Systems Review Of Systems: Comprehensive ROS is negative, except as noted in HPI. ED EXAM, GENERAL - Physical Exam Exam: See Below (dictation) Course - Vital Signs Last Recorded V/S: Last Vital Signs Temp 36.1 C 01/10/19 01:40 Pulse 95 01/10/19 01:40 Resp 18 01/10/19 01:40 BP 151/94 H 01/10/19 01:40 Pulse Ox 96 01/10/19 01:40 - Orders/Labs/Meds Orders: Active Orders 24 hr Category Date Time Status CBC WITH AUTO DIFF [HEME] Stat Lab 01/10/19 01:44 Ordered CMP [COMPREHENSIVE METABOLIC PN,CMP] [CHEM] Stat Lab 01/10/19 01:44 Ordered Departure - Departure Time of Disposition: 01:47 Disposition: Home, Self-Care 01 Condition: Good Clinical Impression: Diabetic neuropathy, History of urinary retention, Encounter for medical screening examination - Discharge Information Referrals: PCP,None [Primary Care Provider] - - My Orders Last 24 Hours: My Active Orders 01/10/19 01:44 CBC WITH AUTO DIFF [HEME] Stat CMP [COMPREHENSIVE METABOLIC PN,CMP] [CHEM] Stat - Assessment/Plan Last 24 Hours: My Active Orders 01/10/19 01:44 CBC WITH AUTO DIFF [HEME] Stat CMP [COMPREHENSIVE METABOLIC PN,CMP] [CHEM] Stat
[2019-01-10 02:18] LABS: BLOOD UREA NITROGEN,BUN 14 mg/dL (7.0-18.0); CARBON DIOXIDE,CO2 22.9 mmol/L (21.0-32.0); CHLORIDE,CL 102 mmol/L (98-107); GLUCOSE RANDOM 138 mg/dL (74-106); POTASSIUM,K 4.3 mmol/L (3.5-5.1); SODIUM,NA 138 mmol/L (136-148)
[2019-01-10 02:38] VITALS: BP 157/68; PULSE 68
== END 2019-01-10 02:30 | disposition home or self-care (01) ==
LOC: MW.ED 01:33
DX: E11.40 Type 2 diabetes mellitus with diabetic neuropathy, unspecified (principal); R33.9 Retention of urine, unspecified; I10 Essential (primary) hypertension; E78.00 Pure hypercholesterolemia, unspecified; M19.90 Unspecified osteoarthritis, unspecified site; F41.9 Anxiety disorder, unspecified; E66.9 Obesity, unspecified; Z68.41 Body mass index [BMI] 40.0-44.9, adult; Z88.0 Allergy status to penicillin; Z79.84 Long term (current) use of oral hypoglycemic drugs; Z79.899 Other long term (current) drug therapy
CPT/HCPCS: 36415; 80053; 85025; 99282; 99283